=== PATIENT | male | born 1945 | race Caucasian/White ===

== ENCOUNTER 2022-07-03 08:55 | Inpatient (IN) | payer MEDICARE, OTHER ==
[~2022-07-03] VITALS: Ht 175.3 cm; Wt 84.9 kg
[2022-07-03 04:00] VITALS: BP 119/73
[2022-07-03] MEDS ORDERED: PIOG15TA8 PO (09:13)
[2022-07-03] MEDS ORDERED: ZOLP5TAB8 PO (09:13)
[2022-07-03] MEDS ORDERED: CLON0.5T4 PO (09:13)
[2022-07-03] MEDS ORDERED: ATOR10TA PO (09:13)
[2022-07-03] MEDS ORDERED: SITA1TAB6 PO (09:13)
[2022-07-03] MEDS ORDERED: IV NS 0.9% 500 ML BAG IV ONE (09:30)
--- NOTE | 2022-07-03 09:30 | NUR ---
MOVE SHEET SUBMITTED.
--- NOTE | 2022-07-03 09:31 | NUR ---
COVID TEST COLLECTED AND SENT
--- NOTE | 2022-07-03 09:33 | NUR ---
X RAY AT BEDSIDE
--- NOTE | 2022-07-03 09:40 | NUR ---
DR PIERCE AT BEDSIDE FOR EVAL
[2022-07-03 09:41] LABS: BASOPHILS % (AUTO) 0.3 % (0.0-2.0); EOSINOPHILS % (AUTO) 1.1 % (0.0-6.0); HEMATOCRIT 37 % (39-51); HEMOGLOBIN 12.2 g/dL (13.5-17.5); LYMPHOCYTES # (AUTO) 2.1 K/uL (0.8-4.8); LYMPHOCYTES % (AUTO) 15.5 % (20.0-44.0); MEAN CORPUSCULAR HGB CONC 33 g/dl (31.0-36.0); MEAN CORPUSCULAR VOLUME 86 fL (80-96); MONOCYTES # (AUTO) 1.1 K/uL (0.1-1.30); MONOCYTES % (AUTO) 7.7 % (2.0-12.0); NEUTROPHILS # (AUTO) 10.3 K/uL (1.8-8.9); NEUTROPHILS % (AUTO) 75.4 % (43.0-81.0); PLATELET COUNT (AUTO) 331 K/uL (150-450); RED BLOOD CELL COUNT(AUTO) 4.35 MIL/uL (4.5-6.0); WHITE BLOOD COUNT (AUTO) 13.6 K/uL (4.3-11.0)
[2022-07-03] MEDS ORDERED: CLOP75TA15 PO (09:51)
[2022-07-03] MEDS ORDERED: ASPI-1169 PO (09:51)
--- NOTE | 2022-07-03 09:53 | NUR ---
MISTI, FAMILY CALLED 911 DUE TO PT BEING WEAK, FELL LAST NIGHT AND THIS AM.
[2022-07-03 10:01] LABS: ALANINE AMINOTRANSFERASE 20 U/L (12-78); ALBUMIN 3.5 g/dL (3.4-5.0); ALKALINE PHOSPHATASE 62 U/L (46-116); ASPARTATE AMINOTRANSFERASE 20 U/L (15-37); BILIRUBIN,DIRECT 0.2 mg/dL (0.0-0.2); BILIRUBIN,TOTAL 0.6 mg/dL (0.2-1.0); CALCIUM, SERUM 9.2 mg/dL (8.5-10.1); CARBON DIOXIDE 29 mmol/L (21-32); CHLORIDE 93 mmol/L (98-107); GLUCOSE 152 mg/dL (74-106); POTASSIUM 3.9 mmol/L (3.5-5.1); SODIUM SERUM 132 mmol/L (136-145); TOTAL PROTEIN, SERUM 7.3 g/dL (6.4-8.2); UREA NITROGEN, BLOOD 19 mg/dL (7-18)
[2022-07-03] MEDS ORDERED: DICL100G34 TP (10:08)
[2022-07-03] MEDS ORDERED: FLUT16SP16 (10:08)
[2022-07-03] MEDS ORDERED: ALBU18HF2 IH (10:08)
[2022-07-03] MEDS ORDERED: ALFU10TA PO (10:08)
[2022-07-03] MEDS ORDERED: MONT10TA22 PO (10:08)
[2022-07-03] MEDS ORDERED: LOSA50TA39 PO (10:08)
[2022-07-03] MEDS ORDERED: AMLO-213 PO (10:08)
[2022-07-03] MEDS ORDERED: OMEP1CAP24 PO (10:08)
[2022-07-03] MEDS ORDERED: LIDO700A30 TP (10:08)
--- NOTE | 2022-07-03 10:55 | NUR ---
bed assigned 311.2, vee lawson
[2022-07-03] MEDS ORDERED: DICLOFENAC TOPICAL 100 GM GEL..GM. TP PRN (11:30)
[2022-07-03] MEDS ORDERED: HYDROCODONE/APAP 10/325MG TABLET PO PRN (11:30)
[2022-07-03] MEDS ORDERED: MAG HYDROX/AL HYDROX/SIMETH 30 ML UDC PO PRN (11:30)
[2022-07-03] MEDS ORDERED: ONDANSETRON HCL/PF 4 MG/2 ML VIAL IVP PRN (11:30)
[2022-07-03] MEDS ORDERED: HYDROCODONE/APAP 5/325MG TABLET PO PRN (11:30)
[2022-07-03] MEDS ORDERED: LIDOCAINE 5% (PATCH) 1 EA PATCH TP PRN (11:30)
[2022-07-03] MEDS ORDERED: clonazePAM 0.5 MG TABLET PO PRN (11:30)
[2022-07-03] MEDS ORDERED: ACETAMINOPHEN 325 MG TABLET PO PRN (11:30)
[2022-07-03] MEDS ORDERED: Z GUARD REMEDY 4 OZ OINT TP PRN (11:30)
[2022-07-03] MEDS ORDERED: HOME MED MISCELLANEOUS XX SCH (11:30)
[2022-07-03] MEDS ORDERED: ALBUTEROL FS 2.5 MG/0.5 ML VIAL.NEB NEB PRN (11:30)
[2022-07-03] MEDS ORDERED: ALBUTEROL SULFATE 8 GM HFA.AER.AD IH PRN (11:30)
[2022-07-03] MEDS: BLOOD SUGAR DIAGNOSTIC 1 EACH STRIP IN SCH ×3 (11:36→21:03)
[2022-07-03] MEDS ORDERED: IV NS 0.9% 1,000 ML BAG IV ONE (12:00)
[2022-07-03] MEDS ORDERED: VANCOMYCIN 1 GM in IV D5W 250 ML IV ONE (12:00)
[2022-07-03] MEDS ORDERED: CEFTRIAXONE 1GM BAG (ER ONLY) 50 ML IV ONE (12:00)
[2022-07-03] MEDS ORDERED: DEXTROSE 50%-WATER 50 ML DISP.SYRIN IV PRN (12:00)
[2022-07-03] MEDS ORDERED: IV NS 0.9% 1,000 ML IV SCH (12:00)
[2022-07-03 12:44] LABS: BILIRUBIN,URINE NEGATIVE (NEGATIVE); COLOR,URINE YELLOW (YELLOW); LEUKOCYTE ESTERASE ,URINE NEGATIVE (NEGATIVE); NITRITE, URINE NEGATIVE (NEGATIVE); PROTEIN,URINE NEGATIVE (NEGATIVE); UGLUCOSE NEGATIVE (NEGATIVE)
--- NOTE | 2022-07-03 12:50 | NUR ---
CALL FROM LAB. REPEAT LACTIC ACID 6.55. CLS IS UNABLE TO ENTER RESULT BECAUSE ORDER GOT CANCELLED
[2022-07-03 13:08] LABS: BACTERIA,URINE None seen /HPF (None Seen); MUCUS,URINE Few /LPF (None Seen); RBC,URINE 0-2 /HPF (0-2); SQUAMOUS EPITHELIAL CELL,UR Rare /HPF (None Seen); WBC,URINE 0-2 /HPF (0-3)
--- NOTE | 2022-07-03 13:20 | NUR ---
MS ADMITTING NOTES: ADMITTED A 76YO MALE PT GUAMANIAN SPEAKING ABLE TO VERBALIZED NEEDS. NO SOB OR CARDIAC DISTRESS NOTED, TRANSFERRED BY ER NURSES VIA GURNEY. IV ACCESS ON LAC G20 PATENT AND INTACT. ABDOMEN SOFT AND NOT DISTENDED. BODY ASSESSMENTS DONE, PHOTO TAKEN AND FILED TO PTS CHART. ORIENTED TO STAFFS AND ROOM MATE. SAFETY PRECAUTIONS INITIATED, BED LOCKED AND IN LOWEST POSITION, SIDE REAILS UP X 2 AND BED TABLE AND CALL LIGHT IN EASY REACH FOR HELP. WILL MONITOR PT ACCORDINGLY.
--- NOTE | 2022-07-03 17:00 | NUR ---
RN NOTES: RECEIVED A CALL FROM LABS LACTIC ACID 6.0 AND INFORMED MD,WAITING FOR RESPONSE.
[2022-07-03] MEDS: ATORVASTATIN 10 MG TABLET PO SCH (17:42)
[2022-07-03] MEDS: LOSARTAN POTASSIUM 50 MG TABLET PO SCH (17:42)
[2022-07-03] MEDS: FLUTICASONE PROPIONATE 16 GM BOTTLE NS SCH (17:48)
[2022-07-03] MEDS: INSULIN REGULAR, HUMAN 100 UNIT/ML 3 ML VIAL SQ PRN ×2 (17:48→21:08)
[2022-07-03] MEDS ORDERED: IV NS 0.9% 1,000 ML IV PRN (18:00)
--- NOTE | 2022-07-03 18:43 | NUR ---
MS RN CLOSING NOTES: PATIENT IN BED AWAKE, ANGOLAN SPEAKING. A/OX3 AND ABLE TO VERBALIZED NEEDS. NO SOB OR CARDIAC DISTRESS NOTED, AFEBRILE. WITH IV ACCESS ON LAC G20 RUNNING NS @75ML/HR. PATENT, INTACT AND INFUSING WELL. SAFETY MEAURES MAINTAINED.BED LOCKED AND IN LOWEST POSITION SIDE RAILS UP X 2 CALL LIGHT IN EASY REACH FOR HELP. WILL ENDORSE TO NOC SHIFT FOR JANNY.
[2022-07-03 20:37] VITALS: BP 123/72
[2022-07-03] MEDS ORDERED: ALFUZOSIN 10 MG PO SCH (22:00)
[2022-07-03] MEDS ORDERED: ZOLPIDEM TARTRATE 5 MG TABLET PO SCH (22:00)
[2022-07-03] MEDS ORDERED: MAGNESIUM HYDROXIDE 30 ML UDC PO PRN (22:00)
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
[2022-07-04 06:02] LABS: BASOPHILS % (AUTO) 0.3 % (0.0-2.0); EOSINOPHILS % (AUTO) 1.2 % (0.0-6.0); HEMATOCRIT 33 % (39-51); HEMOGLOBIN 11.1 g/dL (13.5-17.5); LYMPHOCYTES # (AUTO) 1.9 K/uL (0.8-4.8); LYMPHOCYTES % (AUTO) 15.8 % (20.0-44.0); MEAN CORPUSCULAR HGB CONC 33 g/dl (31.0-36.0); MEAN CORPUSCULAR VOLUME 85 fL (80-96); MONOCYTES # (AUTO) 0.9 K/uL (0.1-1.30); MONOCYTES % (AUTO) 7.2 % (2.0-12.0); NEUTROPHILS # (AUTO) 8.9 K/uL (1.8-8.9); NEUTROPHILS % (AUTO) 75.5 % (43.0-81.0); PLATELET COUNT (AUTO) 325 K/uL (150-450); RED BLOOD CELL COUNT(AUTO) 3.92 MIL/uL (4.5-6.0); WHITE BLOOD COUNT (AUTO) 11.8 K/uL (4.3-11.0)
[2022-07-04] MEDS: BLOOD SUGAR DIAGNOSTIC 1 EACH STRIP IN SCH ×3 (06:15→17:30)
[2022-07-04 06:32] LABS: CALCIUM, SERUM 8.5 mg/dL (8.5-10.1); CARBON DIOXIDE 31 mmol/L (21-32); CHLORIDE 97 mmol/L (98-107); CREATININE 0.7 mg/dL (0.6-1.3); GLUCOSE 120 mg/dL (74-106); MAGNESIUM 1.5 mg/dL (1.8-2.4); PHOSPHORUS 2.6 mg/dL (2.5-4.9); POTASSIUM 3.9 mmol/L (3.5-5.1); SODIUM SERUM 134 mmol/L (136-145); UREA NITROGEN, BLOOD 14 mg/dL (7-18)
[2022-07-04] MEDS ORDERED: PANTOPRAZOLE 40 MG TABLET.DR PO SCH (07:30)
--- NOTE | 2022-07-04 07:30 | NUR ---
RN MS NOTES PT AWAKE, ALERT AND ORIENTED, NO COMPLAINT OF PAIN OR ANY DISCOMFORT, ABLE TO AMBULATE IN THE ROOM WITH SLOW AND STEADY GAIT, CALL LIGHT WITHIN REACH, NEEDS ATTENDED.
[2022-07-04 07:53] LABS: THYROID STIMULATING HORMONE 1.796 uIU/mL (0.358-3.74)
[2022-07-04 08:00] VITALS: BP 126/79
[2022-07-04] MEDS: FLUTICASONE PROPIONATE 16 GM BOTTLE NS SCH ×2 (08:45→17:34)
[2022-07-04] MEDS: LOSARTAN POTASSIUM 50 MG TABLET PO SCH ×2 (08:46→17:00)
[2022-07-04] MEDS ORDERED: ASPIRIN 81 MG TAB.CHEW PO SCH (09:00)
[2022-07-04] MEDS ORDERED: AMLODIPINE BESYLATE 10 MG TABLET PO SCH (09:00)
[2022-07-04] MEDS ORDERED: PIOGLITAZONE HCL 15 MG TABLET PO SCH (09:00)
[2022-07-04] MEDS ORDERED: CLOPIDOGREL BISULFATE 75 MG TABLET PO SCH (09:00)
[2022-07-04] MEDS ORDERED: MONTELUKAST SODIUM (10MG) 10 MG TABLET PO SCH (09:00)
[2022-07-04] MEDS ORDERED: MAGNESIUM OXIDE 400 MG TABLET PO ONE (10:00)
--- NOTE | 2022-07-04 11:00 | NUR ---
RN MS NOTES PT SEEN AND EXAMINED BY DR. DELGADO, PLAN OF CARE DISCUSSED WITH PT THROUGH AND SEROLOGIST, FAMILY INFORMED OF PLAN OF CARE, VERBALIZED UNDERSTANDING.
[2022-07-04] MEDS ORDERED: IV NS 0.9% 1,000 ML IV ONE (15:30)
[2022-07-04] MEDS ORDERED: IV NS 0.9% 1,000 ML IV PRN (15:30)
[2022-07-04 16:00] VITALS: BP 116/67
[2022-07-04 17:00] VITALS: BP 116/67
[2022-07-04] MEDS ORDERED: METFORMIN 500 MG TABLET PO SCH (17:00)
[2022-07-04] MEDS: ATORVASTATIN 10 MG TABLET PO SCH (17:33)
--- NOTE | 2022-07-04 18:53 | NUR ---
RN NOTE- FAMILY CAME ANTHONY ASKED TO DC PT HOME. DEISY DELGADO CALLED. PT CAME OUT IN PAREKH W ANTHONY AND SHE DEMANDED TO SIGN PT AMA. IV HEPLOCK REMOVED, ID WRISTBAND REMOVED AND PT SIGNED AMA.
[2022-07-05] MEDS ORDERED: LINAGLIPTIN 5 MG TABLET PO SCH (09:00)
== END 2022-07-04 18:56 | disposition home health service (06) | DRG 149 ==
LOC: ER 09:04 → MED 11:16
PROVIDERS: ADMIT Nurse Practitioner Acute Care; ATTEND Registered Nurse
DX: H81.10 Benign paroxysmal vertigo, unspecified ear (principal); N17.0 Acute kidney failure with tubular necrosis; E87.1 Hypo-osmolality and hyponatremia; E87.2 Acidosis; Z20.822 Contact with and (suspected) exposure to COVID-19; E11.9 Type 2 diabetes mellitus without complications; E78.5 Hyperlipidemia, unspecified; I10 Essential (primary) hypertension; I25.10 Atherosclerotic heart disease of native coronary artery without angina pectoris; K74.60 Unspecified cirrhosis of liver; R62.7 Adult failure to thrive; F41.9 Anxiety disorder, unspecified; G47.00 Insomnia, unspecified; Z79.51 Long term (current) use of inhaled steroids; Z79.02 Long term (current) use of antithrombotics/antiplatelets; Z79.82 Long term (current) use of aspirin; Z79.899 Other long term (current) drug therapy; Z79.84 Long term (current) use of oral hypoglycemic drugs; N40.0 Benign prostatic hyperplasia without lower urinary tract symptoms; K21.9 Gastro-esophageal reflux disease without esophagitis; R29.6 Repeated falls; D72.829 Elevated white blood cell count, unspecified; J45.909 Unspecified asthma, uncomplicated; Z86.16 Personal history of COVID-19; D64.9 Anemia, unspecified; M62.81 Muscle weakness (generalized); R26.89 Other abnormalities of gait and mobility
CPT/HCPCS: 36415; 70450-TC; 70551-TC; 71045-TC; 80048-TC; 80076-TC; 81001; 82962-TC; 83605-TC; 83735-TC; 83880; 84100-TC; 84443-TC; 84484-TC; 85025-TC; 87040-TC; 93307-TC; 97110-TC; 97116-TC; 97530-TC; C9803; G0378; J0696; J1815; J3370; J7030; J7040; J7060

== ENCOUNTER 2022-09-26 15:25 | Inpatient (IN) | payer MEDICARE, OTHER ==
[~2022-09-26] VITALS: Ht 180.3 cm; Wt 77.1 kg
[~2022-09-26 15:25] MED LIST: ALBU18HF2 IH; ALFU10TA PO; AMLO-213 PO; ASPI-1169 PO; ATOR10TA PO; CLON0.5T4 PO; CLOP75TA15 PO; DICL100G34 TP; FLUT16SP16; LIDO700A30 TP; LOSA50TA39 PO; MONT10TA22 PO; OMEP1CAP24 PO; PIOG15TA8 PO; SITA1TAB6 PO; ZOLP5TAB8 PO
--- NOTE | 2022-09-26 15:33 | NUR ---
[id number] C/O LEFT SIDED WEAKNESS. LKW 1900. PLACED ON BED, AAOX3, BREATHING EVEN AND UNLABORED SATURATING AT 96%RA.
--- NOTE | 2022-09-26 15:50 | NUR ---
BUDGET CONSULTANT AT BEDSIDE
[2022-09-26 16:06] LABS: HEMATOCRIT 37 % (39-51); HEMOGLOBIN 12.2 g/dL (13.5-17.5); MEAN CORPUSCULAR VOLUME 81 fL (80-96); WHITE BLOOD COUNT (AUTO) 15.7 K/uL (4.3-11.0)
[2022-09-26 16:07] LABS: BASOPHILS # (AUTO) 0.1 K/uL (0.0-0.2); BASOPHILS % (AUTO) 0.7 % (0.0-2.0); EOSINOPHILS % (AUTO) 0.1 % (0.0-6.0); LYMPHOCYTES # (AUTO) 1.7 K/uL (0.8-4.8); LYMPHOCYTES % (AUTO) 10.8 % (20.0-44.0); MEAN CORPUSCULAR HGB CONC 33 g/dl (31.0-36.0); MONOCYTES # (AUTO) 0.8 K/uL (0.1-1.30); MONOCYTES % (AUTO) 5.2 % (2.0-12.0); NEUTROPHILS # (AUTO) 13.1 K/uL (1.8-8.9); NEUTROPHILS % (AUTO) 83.2 % (43.0-81.0); PLATELET COUNT (AUTO) 358 K/uL (150-450)
--- NOTE | 2022-09-26 16:13 | NUR ---
SWAB FOR COVID19 SENT TO LAB
--- NOTE | 2022-09-26 16:14 | NUR ---
PATIENT TAKEN TO CT VIA SWAPNA
[2022-09-26 16:44] LABS: ALANINE AMINOTRANSFERASE 13 U/L (12-78); ALBUMIN 3.6 g/dL (3.4-5.0); ALKALINE PHOSPHATASE 67 U/L (46-116); ASPARTATE AMINOTRANSFERASE 23 U/L (15-37); BILIRUBIN,DIRECT 0.2 mg/dL (0.0-0.2); BILIRUBIN,TOTAL 0.7 mg/dL (0.2-1.0); CARBON DIOXIDE 26 mmol/L (21-32); CHLORIDE 88 mmol/L (98-107); CREATININE 0.8 mg/dL (0.6-1.3); GLUCOSE 204 mg/dL (74-106); POTASSIUM 3.8 mmol/L (3.5-5.1); SODIUM SERUM 125 mmol/L (136-145); TOTAL PROTEIN, SERUM 7.4 g/dL (6.4-8.2); UREA NITROGEN, BLOOD 11 mg/dL (7-18)
--- NOTE | 2022-09-26 16:58 | NUR ---
DR KENNEDY ON THE PHONE W/ DR GUZMAN
[2022-09-26] MEDS ORDERED: ASPIRIN 325 MG TABLET PO ONE (17:00)
[2022-09-26] MEDS ORDERED: ASPIRIN 325 MG TABLET ONE (17:02)
--- NOTE | 2022-09-26 17:48 | NUR ---
BED ASSIGNED 116-1
--- NOTE | 2022-09-26 18:06 | NUR ---
REPORT GIVEN TO CHON CLEMONS ROOM 116-1 FOR JANNY
--- NOTE | 2022-09-26 18:06 | NUR ---
RN NOTE RECEIVED REPORT FROM DEONTE BAKER. AWAITING PATIENT AT THIS TIME.
--- NOTE | 2022-09-26 18:39 | NUR ---
RN NOTE PATIENT ARRIVED VIA BED ACCOMPANIED BY DEONTE BAKER. VS TAKEN : BP: 145/80, RR: 20. ORAL TEMP 100.2 F. 02 SAT ON ROOM AIR 100%. TELE READING ST HR 112. IV ACCESS LAC #18 SL. WILL ENDORSE CONTINUITY OF CARE TO FREE LANCE MODEL NURSE.
[2022-09-26] MEDS ORDERED: LIDOCAINE 5% (PATCH) 1 EA PATCH TP PRN (19:00)
[2022-09-26] MEDS ORDERED: ACETAMINOPHEN 325 MG TABLET PO PRN (19:00)
[2022-09-26] MEDS ORDERED: DEXTROSE 50%-WATER 50 ML DISP.SYRIN IV PRN (19:00)
[2022-09-26] MEDS ORDERED: ONDANSETRON HCL/PF 4 MG/2 ML VIAL IVP PRN (19:00)
[2022-09-26] MEDS ORDERED: clonazePAM 0.5 MG TABLET PO PRN (19:00)
[2022-09-26] MEDS ORDERED: Z GUARD REMEDY 4 OZ OINT TP PRN (19:00)
--- NOTE | 2022-09-26 19:15 | NUR ---
SUPERVISOR EDGING NOTED ADMITTED A 77 Y/O MALE PATIENT FROM ER, WITH DX OH ACUTE CVA AND WITH HX OF HTN, HLD, DM, LIVER CIRRHOSIS, ANXIETY, INSOMNIA. PATIENT IMMIDIATELY CONNECTED TO TELEBOX, SHOWING SINUS TACH ON MONITOR WITH HR OF 110. PATIENT NOTED WITH LAC # 18 PERIPHERAL LINE, FLUSHED WITH NS, NO S/S OF INFILTRATION NOTED. V/S TAKEN AND RECORDED. BODY ASSESSMENT DONE. ALL SAFETY PRECAUTION PROVIDED. BED IN LOWEST POSITION LOCKED, BED ALARM ARMED. CALL LIGHT WITH ON REACH. CONTINUE TO MONITOR.
[2022-09-26] MEDS ORDERED: ALBUTEROL FS 2.5 MG/3 ML VIAL.NEB NEB PRN (19:30)
[2022-09-26 20:00] VITALS: BP 132/75
[2022-09-26] MEDS: IV NS 0.9% 1,000 ML IV PRN (20:52)
[2022-09-26] MEDS: BLOOD SUGAR DIAGNOSTIC 1 EACH STRIP IN SCH (22:51)
[2022-09-26] MEDS: INSULIN REGULAR, HUMAN 100 UNIT/ML 3 ML VIAL SQ PRN (22:53)
[2022-09-27] VITALS: BP 134/74
[2022-09-27 04:00] VITALS: BP 143/78
[2022-09-27 06:27] LABS: ALANINE AMINOTRANSFERASE 11 U/L (12-78); ALBUMIN 3.4 g/dL (3.4-5.0); ALKALINE PHOSPHATASE 62 U/L (46-116); ASPARTATE AMINOTRANSFERASE 22 U/L (15-37); CALCIUM, SERUM 8.6 mg/dL (8.5-10.1); CARBON DIOXIDE 25 mmol/L (21-32); CHLORIDE 89 mmol/L (98-107); CREATININE 0.8 mg/dL (0.6-1.3); GLUCOSE 150 mg/dL (74-106); MAGNESIUM 1.6 mg/dL (1.8-2.4); PHOSPHORUS 3.6 mg/dL (2.5-4.9); POTASSIUM 3.8 mmol/L (3.5-5.1); SODIUM SERUM 125 mmol/L (136-145); TOTAL PROTEIN, SERUM 7.1 g/dL (6.4-8.2); UREA NITROGEN, BLOOD 12 mg/dL (7-18)
[2022-09-27 06:28] LABS: BASOPHILS # (AUTO) 0.1 K/uL (0.0-0.2); BASOPHILS % (AUTO) 0.5 % (0.0-2.0); HEMATOCRIT 37 % (39-51); HEMOGLOBIN 12.2 g/dL (13.5-17.5); LYMPHOCYTES # (AUTO) 2.5 K/uL (0.8-4.8); LYMPHOCYTES % (AUTO) 14.8 % (20.0-44.0); MEAN CORPUSCULAR HGB CONC 33 g/dl (31.0-36.0); MEAN CORPUSCULAR VOLUME 81 fL (80-96); MONOCYTES # (AUTO) 1.3 K/uL (0.1-1.30); MONOCYTES % (AUTO) 7.7 % (2.0-12.0); NEUTROPHILS # (AUTO) 13.2 K/uL (1.8-8.9); PLATELET COUNT (AUTO) 377 K/uL (150-450); RED BLOOD CELL COUNT(AUTO) 4.58 MIL/uL (4.5-6.0); WHITE BLOOD COUNT (AUTO) 17.2 K/uL (4.3-11.0)
[2022-09-27 06:30] LABS: CHOLESTEROL 160 mg/dL (<200); HDL CHOLESTEROL 75 mg/dL (40-60); LDL 79 mg/dL (0-99); TRIGLYCERIDES 68 mg/dL (30-150)
--- NOTE | 2022-09-27 07:08 | NUR ---
RN NOTES PATIENT SLEEPING BUT EASILY AROUSE, RESPIRATORY EVEN AND UNLABORED, NO SOB NOTED. REMAIN AFEBRILE. NO S/S OF DISTRESS NOTED. RUNNING WITH NS @ 75 ML/HR. ALL DUE MEDS GIVEN ALL SAFETY PRECAUTION PROVIDED. BED IN LOWEST POSITION, LOCKED, BED ALARM ARMED. CALL LIGHT WITH IN REACH. CONTINUE TO MONITOR
--- NOTE | 2022-09-27 07:30 | NUR ---
TD RN AM NOTES PT IN BED, AOX3, YI SPEAKING, ON RA O2 SAT >95%, RESPIRATION UNLABORED, ST HR 107 ON MONITOR. DENIES PAIN/DISCOMFORT. RIGHT AC G 18 IV INFILTRATED. WILL RESTART IV ON ANOTHER SITE. WITH NS AT 75 ML/HR. NO SKIN ISSUES. NEEDS ASSIST IN TURNING AND REPOSITIONING. ON DIAPERS. POC DISCUSSED, NEEDS FURTHER TEACHINGS. SOFT DIET. BED BOUND FOR NOW. SAFETY MEASURES IN PLACE, BED LOW LOCKED. CALL LIGHT WITHIN REACH. WILL CONT TO MONITOR.
[2022-09-27] MEDS: BLOOD SUGAR DIAGNOSTIC 1 EACH STRIP IN SCH ×4 (07:48→22:02)
[2022-09-27 08:00] VITALS: BP 128/82
[2022-09-27] MEDS: PANTOPRAZOLE 40 MG TABLET.DR PO SCH (08:03)
[2022-09-27] MEDS: ASPIRIN 81 MG TAB.CHEW PO SCH (08:38)
[2022-09-27] MEDS: MONTELUKAST SODIUM (10MG) 10 MG TABLET PO SCH (08:38)
[2022-09-27] MEDS: CLOPIDOGREL BISULFATE 75 MG TABLET PO SCH (08:38)
[2022-09-27] MEDS: LINAGLIPTIN 5 MG TABLET PO SCH (08:39)
[2022-09-27] MEDS: PIOGLITAZONE HCL 15 MG TABLET PO SCH (08:39)
[2022-09-27] MEDS ORDERED: AMLODIPINE BESYLATE 10 MG TABLET PO SCH (09:00)
[2022-09-27] MEDS ORDERED: LOSARTAN POTASSIUM 50 MG TABLET PO SCH (09:00)
--- NOTE | 2022-09-27 09:30 | NUR ---
RN NOTES DUE MEDS GIVEN
[2022-09-27] MEDS: FLUTICASONE PROPIONATE 16 GM BOTTLE NS SCH ×2 (09:47→16:52)
[2022-09-27] MEDS ORDERED: MAGNESIUM OXIDE 400 MG TABLET PO ONE (10:00)
[2022-09-27] MEDS: INSULIN REGULAR, HUMAN 100 UNIT/ML 3 ML VIAL SQ PRN ×4 (10:28→22:03)
[2022-09-27 12:00] VITALS: BP 116/69
[2022-09-27] MEDS ORDERED: IV NS 0.9% 250 ML IV ONE (12:00)
[2022-09-27] MEDS ORDERED: IOHEXOL-350 100 ML VIAL IV ONE (12:00)
[2022-09-27] MEDS: IV NS 0.9% 1,000 ML IV PRN (13:55)
[2022-09-27 16:00] VITALS: BP 121/72
[2022-09-27] MEDS ORDERED: ATORVASTATIN 10 MG TABLET PO SCH (18:00)
--- NOTE | 2022-09-27 18:55 | NUR ---
PATIENT IS AWAKE, ALERT, ORIENTED X 4, ANGOLAN SPEAKING ONLY, VITAL SIGNS ARE STABLE
--- NOTE | 2022-09-27 19:30 | NUR ---
RN OPENING NOTES PT IN BED, AWAKE, AO X 1-2, OMANI SPEAKING ONLY. CURRENTLY ON RA, TOLERATING WELL, O2 SAT >95%, RESPIRATION IS EVEN AND UNLABORED. SR HR IN THE 90s ON MONITOR. DENIES PAIN AND DISCOMFORT. NO S/SX OF ACUTE RESPI DISTRESS NOTED AT THIS TIME. RIGHT AC #18G IN PLACE RUNNING NS @ 75 CC/HR. ALL SAFETY MEASURES IN PLACE: BED IN LOW POSITION, LOCKED. BED ALARM ON. SR UP X 2. CALL LIGHT WITHIN REACH. WILL CONT TO MONITOR.
[2022-09-27 20:00] VITALS: BP 116/65
[2022-09-28] VITALS: BP 116/65
[2022-09-28] MEDS: IV NS 0.9% 1,000 ML IV PRN (01:25)
[2022-09-28 04:00] VITALS: BP 114/58
--- NOTE | 2022-09-28 06:16 | NUR ---
RN NOTE NO SIGNIFICANT CHANGE T/O THE NIGHT. PT REMAINED STABLE. VS WNL.ST ON TELE MONITOR. WILL ENDORSE TO AM SHIFT NURSE FOR JANNY.
[2022-09-28 06:36] LABS: CALCIUM, SERUM 8.8 mg/dL (8.5-10.1); CARBON DIOXIDE 25 mmol/L (21-32); CHLORIDE 97 mmol/L (98-107); CREATININE 0.8 mg/dL (0.6-1.3); GLUCOSE 121 mg/dL (74-106); PHOSPHORUS 3.8 mg/dL (2.5-4.9); POTASSIUM 3.4 mmol/L (3.5-5.1); SODIUM SERUM 132 mmol/L (136-145); UREA NITROGEN, BLOOD 16 mg/dL (7-18)
[2022-09-28 07:56] LABS: BASOPHILS # (AUTO) 0.1 K/uL (0.0-0.2); BASOPHILS % (AUTO) 0.6 % (0.0-2.0); EOSINOPHILS % (AUTO) 0.4 % (0.0-6.0); HEMATOCRIT 37 % (39-51); HEMOGLOBIN 12.2 g/dL (13.5-17.5); LYMPHOCYTES # (AUTO) 2.4 K/uL (0.8-4.8); LYMPHOCYTES % (AUTO) 16.6 % (20.0-44.0); MEAN CORPUSCULAR HGB CONC 33 g/dl (31.0-36.0); MEAN CORPUSCULAR VOLUME 81 fL (80-96); MONOCYTES # (AUTO) 1.3 K/uL (0.1-1.30); NEUTROPHILS # (AUTO) 10.8 K/uL (1.8-8.9); NEUTROPHILS % (AUTO) 73.4 % (43.0-81.0); PLATELET COUNT (AUTO) 390 K/uL (150-450); RED BLOOD CELL COUNT(AUTO) 4.63 MIL/uL (4.5-6.0); WHITE BLOOD COUNT (AUTO) 14.8 K/uL (4.3-11.0)
[2022-09-28 08:00] VITALS: BP 120/73
[2022-09-28] MEDS: BLOOD SUGAR DIAGNOSTIC 1 EACH STRIP IN SCH ×3 (08:19→18:06)
[2022-09-28] MEDS: CLOPIDOGREL BISULFATE 75 MG TABLET PO SCH (08:20)
[2022-09-28] MEDS: PANTOPRAZOLE 40 MG TABLET.DR PO SCH (08:20)
[2022-09-28] MEDS: MONTELUKAST SODIUM (10MG) 10 MG TABLET PO SCH (08:20)
[2022-09-28] MEDS: ASPIRIN 81 MG TAB.CHEW PO SCH (08:20)
[2022-09-28] MEDS: PIOGLITAZONE HCL 15 MG TABLET PO SCH (08:20)
[2022-09-28] MEDS: LINAGLIPTIN 5 MG TABLET PO SCH (08:28)
[2022-09-28] MEDS: FLUTICASONE PROPIONATE 16 GM BOTTLE NS SCH ×2 (08:28→17:29)
[2022-09-28] MEDS ORDERED: POTASSIUM CHLORIDE 20 MEQ TAB.PRT.SR PO SCH (10:00)
[2022-09-28 12:00] VITALS: BP 129/73
[2022-09-28] MEDS: INSULIN REGULAR, HUMAN 100 UNIT/ML 3 ML VIAL SQ PRN (12:34)
[2022-09-28 15:38] LABS: BILIRUBIN,URINE NEGATIVE (NEGATIVE); COLOR,URINE YELLOW (YELLOW); LEUKOCYTE ESTERASE ,URINE NEGATIVE (NEGATIVE); NITRITE, URINE NEGATIVE (NEGATIVE); PH,URINE 6.5 (5.0-8.0); PROTEIN,URINE NEGATIVE (NEGATIVE); UGLUCOSE NEGATIVE (NEGATIVE); UROBILINOGEN,URINE 0.2 EU/dL (0.2)
[2022-09-28 16:00] VITALS: BP 129/84
--- NOTE | 2022-09-28 18:51 | NUR ---
PT'S DAUGHTER CAME AND BOTH THE PATIENT AND THE DAUGHTER IN AGRREMENT THAT THEY WANTED TO LEAVE THE HOSPITAL AMA AND NO LONGER WANTED TO RECEIVE MEDICAL TREATMENT. THEY WERE DISCHARGED AMA INCIDENT REPORT WAS FILED
== END 2022-09-28 18:50 | disposition left against medical advice (07) | DRG 564 ==
LOC: ER 15:27 → TELE1 17:57
PROVIDERS: ADMIT Nurse Practitioner Acute Care; ATTEND Nurse Practitioner Acute Care
PROC: 05H933Z Insertion of Infusion Device into Right Brachial Vein, Percutaneous Approach (ICD-10-PCS; principal; 2022-09-27)
DX: M24.812 Other specific joint derangements of left shoulder, not elsewhere classified (principal); G93.41 Metabolic encephalopathy; E87.1 Hypo-osmolality and hyponatremia; G81.94 Hemiplegia, unspecified affecting left nondominant side; M75.42 Impingement syndrome of left shoulder; I25.10 Atherosclerotic heart disease of native coronary artery without angina pectoris; E78.5 Hyperlipidemia, unspecified; D72.829 Elevated white blood cell count, unspecified; I10 Essential (primary) hypertension; N40.0 Benign prostatic hyperplasia without lower urinary tract symptoms; K74.60 Unspecified cirrhosis of liver; E11.9 Type 2 diabetes mellitus without complications; K21.9 Gastro-esophageal reflux disease without esophagitis; F41.9 Anxiety disorder, unspecified; G47.00 Insomnia, unspecified; Z20.822 Contact with and (suspected) exposure to COVID-19
CPT/HCPCS: 36415; 70450-TC; 70496-TC; 70498-TC; 71045-TC; 80048-TC; 80053-TC; 80061-TC; 80076-TC; 82533; 82962-TC; 83735-TC; 84100-TC; 84443-TC; 84484-TC; 85025-TC; 85730-TC; 87081-TC; 92526; 92611-TC; 93307-TC; 97110-TC; 97112-TC; 97530-TC; C9803; G0378; J1815; J7030; J7050; Q9967

== ENCOUNTER 2024-09-13 10:33 | Inpatient (IN) | payer MEDICARE, OTHER ==
[2024-09-13] VITALS (15 sets, daily range): BP systolic 83–166; BP diastolic 62–154; TEMP 97.6–99.2; O2SAT 83–100
[~2024-09-13] VITALS: Ht 172.7 cm; Wt 76.2 kg
[2024-09-13] MEDS ORDERED: ACETAMINOPHEN 650 MG/SUPP.RECT RC ONE (10:46)
[2024-09-13] MEDS: IV NS 0.9% 1,000 ML BAG IV ONE (10:58)
[2024-09-13] MEDS: PIPERACILLIN /TAZOBACTAM 3.375 G in IV D5W 50 ML IV ONE (10:58)
[2024-09-13 10:59] LABS: BASOPHILS # (AUTO) 0.1 K/uL (0.0-0.2); BASOPHILS % (AUTO) 0.4 % (0.0-2.0); EOSINOPHILS % (AUTO) 0.1 % (0.0-6.0); HEMATOCRIT 42 % (39-51); HEMOGLOBIN 13.4 g/dL (13.5-17.5); LYMPHOCYTES # (AUTO) 2.7 K/uL (0.8-4.8); LYMPHOCYTES % (AUTO) 15.3 % (20.0-44.0); MEAN CORPUSCULAR HEMOGLOBIN 26 PG (26.0-33.0); MEAN CORPUSCULAR HGB CONC 32 g/dl (31.0-36.0); MEAN CORPUSCULAR VOLUME 82 fL (80-96); MONOCYTES # (AUTO) 0.8 K/uL (0.1-1.30); MONOCYTES % (AUTO) 4.6 % (2.0-12.0); NEUTROPHILS # (AUTO) 14.3 K/uL (1.8-8.9); NEUTROPHILS % (AUTO) 79.6 % (43.0-81.0); PLATELET COUNT (AUTO) 506 K/uL (150-450); RED BLOOD CELL COUNT(AUTO) 5.16 MIL/uL (4.5-6.0); RED CELL DISTRIBUTION WIDTH 16.5 % (11.5-15.0)
[2024-09-13 11:04] LABS: ABG BASE EXCESS -1.5 mmol/L (-2.0-3.0); ABG OXYGEN SATURATION 90.5 % (94.0-98.0); ABG PCO2 35.6 mmHg (35.0-48.0); ABG PH 7.418 (7.350-7.450); ABG PO2 60.5 mmHg (83.0-108.0); ABG TOTAL HEMOGLOBIN 12.9 G/dL (13.5-17.5); COHb 0.3 % (0.5-1.5); MetHb 0.3 % (0.0-1.5); SITE, ABG RIGHT RADIAL
[2024-09-13] MEDS: ACETAMINOPHEN 650 MG/SUPP.RECT RC ONE (11:04)
[2024-09-13 11:14] LABS: CALCIUM, SERUM 9.9 mg/dL (8.5-10.1); CARBON DIOXIDE 26 mmol/L (21-32); CHLORIDE 101 mmol/L (98-107); CREATININE 0.8 mg/dL (0.6-1.3); GLUCOSE 171 mg/dL (74-106); POTASSIUM 4.3 mmol/L (3.5-5.1); SODIUM SERUM 139 mmol/L (136-145); UREA NITROGEN, BLOOD 22 mg/dL (7-18)
[2024-09-13 11:20] LABS: ALANINE AMINOTRANSFERASE 13 U/L (12-78); ALKALINE PHOSPHATASE 82 U/L (46-116); ASPARTATE AMINOTRANSFERASE 36 U/L (15-37); TOTAL PROTEIN, SERUM 8.5 g/dL (6.4-8.2)
[2024-09-13 11:23] LABS: INR 1.07 (0.91-1.10); PARTIAL THROMBOPLASTIN TIME 26.3 SEC (24.3-34.3)
[2024-09-13 11:27] LABS: LACTIC ACID 2.3 mmol/L (0.4-2.0)
[2024-09-13 11:39] LABS: ALBUMIN 3.1 g/dL (3.4-5.0)
[2024-09-13 11:40] LABS: BILIRUBIN,DIRECT 0.3 mg/dL (0.0-0.2)
[2024-09-13] MEDS ORDERED: TAMS-12 PO (11:41)
[2024-09-13] MEDS ORDERED: CLON1TAB12 PO (11:41)
[2024-09-13] MEDS ORDERED: DULO40CA7 PO (11:41)
[2024-09-13] MEDS ORDERED: FAMO20TA8 PO (11:41)
[2024-09-13] MEDS ORDERED: MAG HYDROX/AL HYDROX/SIMETH 30 ML UDC PO PRN (12:00)
[2024-09-13] MEDS ORDERED: MAGNESIUM HYDROXIDE 30 ML UDC PO PRN (12:00)
[2024-09-13] MEDS ORDERED: ACETAMINOPHEN 325 MG TABLET PO PRN (12:00)
[2024-09-13 13:12] LABS: APPEARANCE,URINE CLEAR (CLEAR); BILIRUBIN,URINE 1+ (NEGATIVE); BLOOD, URINE NEGATIVE Ery/uL (NEGATIVE); COLOR,URINE YELLOW (YELLOW); KETONES,URINE 3+ mg/dL (NEGATIVE); LEUKOCYTE ESTERASE ,URINE NEGATIVE (NEGATIVE); NITRITE, URINE NEGATIVE (NEGATIVE); PROTEIN,URINE 1+ mg/dl (NEGATIVE); UGLUCOSE NEGATIVE (NEGATIVE); UROBILINOGEN,URINE 0.2 EU/dL (0.2)
[2024-09-13 14:32] LABS: ADD URINE CULTURE YES; BACTERIA,URINE 1+ /HPF (None Seen); RBC,URINE 0-2 /HPF (0-2); SQUAMOUS EPITHELIAL CELL,UR 0-2 /HPF (None Seen)
[2024-09-13] MEDS: IV NS 0.9% 1,000 ML IV PRN (14:43)
[2024-09-13] MEDS: VANCOMYCIN 1 GM in IV D5W 250ml IV ONE (15:07)
[2024-09-13] MEDS: ENOXAPARIN SODIUM 40 MG/0.4 ML DISP.SYRIN SQ SCH (15:15)
[2024-09-13] MEDS: VANCOMYCIN 750 MG in IV D5W 250 ML IV ONE (16:29)
[2024-09-13] MEDS: Z GUARD REMEDY 4 OZ OINT TP PRN (16:29)
[2024-09-13] MEDS: PIPERACILLIN /TAZOBACTAM 4.5 G in IV D5W 50 ML IV SCH (16:41)
[2024-09-13] MEDS: TAMSULOSIN 0.4 MG CAP.SR.24H PO SCH (21:24)
[2024-09-14] VITALS (97 sets, daily range): BP systolic 70–139; BP diastolic 55–111; TEMP 98–99; O2SAT 90–100
[2024-09-14] MEDS: PHENYLEPHRINE 50 MG in IV NS 0.9% 245 ML IV PRN (00:25)
[2024-09-14] MEDS: VANCOMYCIN 750 MG in IV D5W 250 ML IV SCH (01:34)
[2024-09-14] MEDS: ONDANSETRON HCL/PF 4 MG/2 ML VIAL IVP PRN (03:06)
[2024-09-14 05:02] LABS: BASOPHILS % (AUTO) 0.1 % (0.0-2.0); HEMATOCRIT 36 % (39-51); HEMOGLOBIN 11.4 g/dL (13.5-17.5); LYMPHOCYTES # (AUTO) 1.1 K/uL (0.8-4.8); LYMPHOCYTES % (AUTO) 3.1 % (20.0-44.0); MEAN CORPUSCULAR HEMOGLOBIN 25 PG (26.0-33.0); MEAN CORPUSCULAR HGB CONC 32 g/dl (31.0-36.0); MEAN CORPUSCULAR VOLUME 80 fL (80-96); MONOCYTES # (AUTO) 1.1 K/uL (0.1-1.30); MONOCYTES % (AUTO) 3.2 % (2.0-12.0); NEUTROPHILS # (AUTO) 33.4 K/uL (1.8-8.9); NEUTROPHILS % (AUTO) 93.6 % (43.0-81.0); PLATELET COUNT (AUTO) 484 K/uL (150-450); RED CELL DISTRIBUTION WIDTH 15.9 % (11.5-15.0)
[2024-09-14 05:11] LABS: WHITE BLOOD COUNT (AUTO) 35.7 K/uL (4.3-11.0)
[2024-09-14 05:30] LABS: ABG BASE EXCESS -5.3 mmol/L (-2.0-3.0); ABG PCO2 29.4 mmHg (35.0-48.0); ABG PH 7.409 (7.350-7.450); ABG PO2 150.5 mmHg (83.0-108.0); ABG TOTAL HEMOGLOBIN 12.7 G/dL (13.5-17.5); COHb 0.3 % (0.5-1.5); MetHb 0.2 % (0.0-1.5); O2Hb 98.5 % (94.0-97.0); SITE, ABG RIGHT RADIAL
[2024-09-14 05:53] LABS: CALCIUM, SERUM 8.4 mg/dL (8.5-10.1); CARBON DIOXIDE 24 mmol/L (21-32); CHLORIDE 104 mmol/L (98-107); CREATININE 1.3 mg/dL (0.6-1.3); GLUCOSE 234 mg/dL (74-106); MAGNESIUM 1.7 mg/dL (1.8-2.4); PHOSPHORUS 3.3 mg/dL (2.5-4.9); POTASSIUM 3.4 mmol/L (3.5-5.1); SODIUM SERUM 142 mmol/L (136-145); UREA NITROGEN, BLOOD 27 mg/dL (7-18)
[2024-09-14 06:24] LABS: BAND % (MANUAL) 10 % (0.0-5.0); LYMPHOCYTES % (MANUAL) 3 % (16-48); MONOCYTES % (MANUAL) 3 % (0-11.0); NEUTROPHILS % (MANUAL) 84 (42-76)
[2024-09-14 06:25] LABS: PLATELET ESTIMATE INCREASED
[2024-09-14 06:26] LABS: ANISOCYTOSIS 1+
[2024-09-14] MEDS: POTASSIUM CHLORIDE 20 MEQ POWDER PACKET NG SCH (09:00)
[2024-09-14] MEDS: DULOXETINE HCL 20 MG CAPSULE.DR PO SCH (09:00)
[2024-09-14] MEDS: Magnesium 1GM/D5W 100ML PREMIX 100 ML IV SCH (09:52)
[2024-09-14] MEDS: PIPERACILLIN /TAZOBACTAM 4.5 G in IV D5W 100 ML IV SCH (10:47)
[2024-09-14] MEDS: VANCOMYCIN 500 MG in IV D5W 100ml IV SCH (13:54)
[2024-09-14] MEDS: POTASSIUM CL. PREMIX PERIPHER. 50 ML IV SCH (16:29)
[2024-09-14 21:29] LABS: CREATININE, URINE 160.6 MG/DL (30.0-125.0); URINE TOTAL PROTEIN 255.2 mg/dL (0-11.9)
[2024-09-15] VITALS (70 sets, daily range): BP systolic 67–169; BP diastolic 54–137; TEMP 97.6–99.2; O2SAT 66–100
[2024-09-15 05:28] LABS: CALCIUM, SERUM 7.9 mg/dL (8.5-10.1); CARBON DIOXIDE 25 mmol/L (21-32); CHLORIDE 110 mmol/L (98-107); CREATININE 0.6 mg/dL (0.6-1.3); GLUCOSE 132 mg/dL (74-106); POTASSIUM 3.2 mmol/L (3.5-5.1); SODIUM SERUM 145 mmol/L (136-145); UREA NITROGEN, BLOOD 22 mg/dL (7-18)
[2024-09-15 07:49] LABS: BASOPHILS # (AUTO) 0.1 K/uL (0.0-0.2); BASOPHILS % (AUTO) 0.3 % (0.0-2.0); EOSINOPHILS # (AUTO) 0.1 K/uL (0.0-0.7); EOSINOPHILS % (AUTO) 0.3 % (0.0-6.0); HEMATOCRIT 30 % (39-51); HEMOGLOBIN 9.7 g/dL (13.5-17.5); LYMPHOCYTES # (AUTO) 1.2 K/uL (0.8-4.8); LYMPHOCYTES % (AUTO) 5.6 % (20.0-44.0); MEAN CORPUSCULAR HEMOGLOBIN 26 PG (26.0-33.0); MEAN CORPUSCULAR HGB CONC 33 g/dl (31.0-36.0); MEAN CORPUSCULAR VOLUME 80 fL (80-96); MONOCYTES # (AUTO) 1.1 K/uL (0.1-1.30); MONOCYTES % (AUTO) 5.1 % (2.0-12.0); NEUTROPHILS # (AUTO) 18.9 K/uL (1.8-8.9); NEUTROPHILS % (AUTO) 88.7 % (43.0-81.0); PLATELET COUNT (AUTO) 352 K/uL (150-450); RED BLOOD CELL COUNT(AUTO) 3.72 MIL/uL (4.5-6.0); RED CELL DISTRIBUTION WIDTH 16.5 % (11.5-15.0); WHITE BLOOD COUNT (AUTO) 21.2 K/uL (4.3-11.0)
[2024-09-15 10:30] LABS: ABG BASE EXCESS -2.9 mmol/L (-2.0-3.0); ABG OXYGEN SATURATION 97.5 % (94.0-98.0); ABG PCO2 28.9 mmHg (35.0-48.0); ABG PH 7.459 (7.350-7.450); ABG TOTAL HEMOGLOBIN 10.9 G/dL (13.5-17.5); COHb 0.3 % (0.5-1.5); MetHb 0.1 % (0.0-1.5); O2Hb 97.1 % (94.0-97.0); SITE, ABG RIGHT RADIAL
[2024-09-15] MEDS: POTASSIUM CL. PREMIX PERIPHER. 50 ML IV SCH (10:36)
[2024-09-15] MEDS ORDERED: GLUCERNA 1.2 1,000 ML BOTTLE NG PRN (14:00)
[2024-09-15 18:57] LABS: ABG BASE EXCESS -3.3 mmol/L (-2.0-3.0); ABG OXYGEN SATURATION 90.8 % (94.0-98.0); ABG PCO2 29.2 mmHg (35.0-48.0); ABG PH 7.447 (7.350-7.450); ABG PO2 58.5 mmHg (83.0-108.0); ABG TOTAL HEMOGLOBIN 11.3 G/dL (13.5-17.5); COHb 0.3 % (0.5-1.5); MetHb 0.2 % (0.0-1.5); O2Hb 90.3 % (94.0-97.0); SITE, ABG RIGHT RADIAL
[2024-09-16] VITALS (28 sets, daily range): BP systolic 103–138; BP diastolic 63–92; TEMP 97.6–99.7; O2SAT 93–100
[2024-09-16 05:21] LABS: BASOPHILS % (AUTO) 0.1 % (0.0-2.0); EOSINOPHILS % (AUTO) 0.1 % (0.0-6.0); HEMATOCRIT 28 % (39-51); HEMOGLOBIN 9.4 g/dL (13.5-17.5); LYMPHOCYTES % (AUTO) 4.9 % (20.0-44.0); MEAN CORPUSCULAR HEMOGLOBIN 26 PG (26.0-33.0); MEAN CORPUSCULAR HGB CONC 33 g/dl (31.0-36.0); MEAN CORPUSCULAR VOLUME 80 fL (80-96); MONOCYTES % (AUTO) 4.6 % (2.0-12.0); NEUTROPHILS # (AUTO) 18.6 K/uL (1.8-8.9); NEUTROPHILS % (AUTO) 90.3 % (43.0-81.0); PLATELET COUNT (AUTO) 330 K/uL (150-450); RED BLOOD CELL COUNT(AUTO) 3.56 MIL/uL (4.5-6.0); RED CELL DISTRIBUTION WIDTH 16.1 % (11.5-15.0); WHITE BLOOD COUNT (AUTO) 20.6 K/uL (4.3-11.0)
[2024-09-16 05:27] LABS: CALCIUM, SERUM 8.1 mg/dL (8.5-10.1); CHLORIDE 110 mmol/L (98-107); CREATININE 0.5 mg/dL (0.6-1.3); GLUCOSE 143 mg/dL (74-106); MAGNESIUM 1.7 mg/dL (1.8-2.4); PHOSPHORUS 1.7 mg/dL (2.5-4.9); POTASSIUM 3.1 mmol/L (3.5-5.1); SODIUM SERUM 146 mmol/L (136-145); UREA NITROGEN, BLOOD 14 mg/dL (7-18)
[2024-09-16 05:46] LABS: CARBON DIOXIDE 24 mmol/L (21-32)
[2024-09-16] MEDS: Magnesium 1GM/D5W 100ML PREMIX 100 ML IV SCH (09:50)
[2024-09-16] MEDS: POTASSIUM CL. PREMIX PERIPHER. 50 ML IV SCH (09:51)
[2024-09-16 10:51] LABS: BAND % (MANUAL) 1 % (0.0-5.0); LYMPHOCYTES % (MANUAL) 2 % (16-48); MONOCYTES % (MANUAL) 2 % (0-11.0); NEUTROPHILS % (MANUAL) 95 (42-76); PLATELET ESTIMATE ADEQUATE
[2024-09-16 10:52] LABS: ANISOCYTOSIS 1+
[2024-09-16] MEDS: POTASSIUM PHOSPHATE MM 5 MMOL in IV NS 0.9% 100 ML IV SCH (13:05)
[2024-09-16] MEDS: VANCOMYCIN 750 MG in IV D5W 250 ML IV SCH (14:16)
[2024-09-16] MEDS: IV 1/2NS 1000 ML 1,000 ML IV PRN (18:25)
[2024-09-17 02:00] VITALS: BP 128/71; TEMP 98.8; O2SAT 98
[2024-09-17 06:00] VITALS: BP 123/74; TEMP 98.8; O2SAT 98
[2024-09-17 08:11] LABS: BASOPHILS % (AUTO) 0.2 % (0.0-2.0); EOSINOPHILS # (AUTO) 0.1 K/uL (0.0-0.7); EOSINOPHILS % (AUTO) 0.3 % (0.0-6.0); HEMATOCRIT 33 % (39-51); HEMOGLOBIN 10.5 g/dL (13.5-17.5); LYMPHOCYTES # (AUTO) 1.5 K/uL (0.8-4.8); LYMPHOCYTES % (AUTO) 8.6 % (20.0-44.0); MEAN CORPUSCULAR HEMOGLOBIN 26 PG (26.0-33.0); MEAN CORPUSCULAR HGB CONC 32 g/dl (31.0-36.0); MEAN CORPUSCULAR VOLUME 80 fL (80-96); MONOCYTES # (AUTO) 1.1 K/uL (0.1-1.30); NEUTROPHILS # (AUTO) 14.8 K/uL (1.8-8.9); NEUTROPHILS % (AUTO) 84.9 % (43.0-81.0); PLATELET COUNT (AUTO) 301 K/uL (150-450); RED BLOOD CELL COUNT(AUTO) 4.12 MIL/uL (4.5-6.0); RED CELL DISTRIBUTION WIDTH 16.1 % (11.5-15.0); WHITE BLOOD COUNT (AUTO) 17.5 K/uL (4.3-11.0)
[2024-09-17 08:23] LABS: CALCIUM, SERUM 7.9 mg/dL (8.5-10.1); CARBON DIOXIDE 26 mmol/L (21-32); CHLORIDE 104 mmol/L (98-107); CREATININE 0.6 mg/dL (0.6-1.3); GLUCOSE 149 mg/dL (74-106); POTASSIUM 3.1 mmol/L (3.5-5.1); SODIUM SERUM 138 mmol/L (136-145); UREA NITROGEN, BLOOD 9 mg/dL (7-18)
[2024-09-17] MEDS: POTASSIUM CHLORIDE 20 MEQ POWDER PACKET NG SCH (09:00)
[2024-09-17 09:07] LABS: *SPE A/G RATIO 0.7 (0.7-1.7); *SPE ALBUMIN 2.5 g/dL (2.9-4.4); *SPE ALPHA-1-GLOBULIN 0.5 g/dL (0.0-0.4); *SPE ALPHA-2-GLOBULIN 1.1 g/dL (0.4-1.0); *SPE BETA GLOBULIN 1.1 g/dL (0.7-1.3); *SPE GLOBULIN, TOTAL 3.7 g/dL (2.2-3.9); *SPE M-SPIKE Not Observed g/dL (Not Observed); *SPE PROTEIN TOTAL 6.2 g/dL (6.0-8.5)
[2024-09-17 10:00] VITALS: BP 119/79; TEMP 97.7; O2SAT 95
[2024-09-17 10:29] LABS: ABG BASE EXCESS 1.8 mmol/L (-2.0-3.0); ABG OXYGEN SATURATION 94.5 % (94.0-98.0); ABG PCO2 31.3 mmHg (35.0-48.0); ABG PH 7.509 (7.350-7.450); ABG PO2 71.5 mmHg (83.0-108.0); ABG TOTAL HEMOGLOBIN 10.7 G/dL (13.5-17.5); COHb 0.3 % (0.5-1.5); MetHb 0.2 % (0.0-1.5); SITE, ABG RIGHT RADIAL
[2024-09-17] MEDS: POTASSIUM CL. PREMIX PERIPHER. 50 ML IV SCH (12:31)
[2024-09-17 14:00] VITALS: BP 119/73; TEMP 97.5; O2SAT 94
[2024-09-17 18:00] VITALS: BP 128/77; TEMP 98.2; O2SAT 94
[2024-09-17] MEDS ORDERED: MEROPENEM 500 MG in IV NS 0.9% 50 ML IV SCH ×2 (21:00→21:30)
[2024-09-17] MEDS: LEVALBUTEROL HCL NEB 1.25 MG/0.5 ML VIAL.NEB NEB SCH (23:11)
[2024-09-18] MEDS ORDERED: IPRATROPIUM NEB FS 0.5 MG/2.5 ML AMPUL.NEB NEB SCH (01:30)
== END 2024-09-17 23:00 | DRG 871 ==
LOC: ER 10:36 → ICU 13:06 → TELE1 09-16 14:56 → TELE-TD 09-16 19:46
PROVIDERS: ADMIT Internal Medicine; ATTEND Nurse Practitioner Acute Care
PROC: 5A09457 Assistance with Respiratory Ventilation, 24-96 Consecutive Hours, Continuous Positive Airway Pressure (ICD-10-PCS; principal; 2024-09-13)
PROC: 02HV33Z Insertion of Infusion Device into Superior Vena Cava, Percutaneous Approach (ICD-10-PCS; 2024-09-13)
PROC: B548ZZA Ultrasonography of Superior Vena Cava, Guidance (ICD-10-PCS; 2024-09-13)
DX: A41.9 Sepsis, unspecified organism (principal); G93.41 Metabolic encephalopathy; J96.01 Acute respiratory failure with hypoxia; J15.9 Unspecified bacterial pneumonia; J69.0 Pneumonitis due to inhalation of food and vomit; R65.21 Severe sepsis with septic shock; J44.0 Chronic obstructive pulmonary disease with (acute) lower respiratory infection; E44.0 Moderate protein-calorie malnutrition; E87.0 Hyperosmolality and hypernatremia; E87.20 Acidosis, unspecified; N17.9 Acute kidney failure, unspecified; N39.0 Urinary tract infection, site not specified; F03.94 Unspecified dementia, unspecified severity, with anxiety; N40.0 Benign prostatic hyperplasia without lower urinary tract symptoms; K74.60 Unspecified cirrhosis of liver; D64.9 Anemia, unspecified; E11.9 Type 2 diabetes mellitus without complications; E66.9 Obesity, unspecified; E78.5 Hyperlipidemia, unspecified; E87.6 Hypokalemia; E88.09 Other disorders of plasma-protein metabolism, not elsewhere classified; I10 Essential (primary) hypertension; I25.10 Atherosclerotic heart disease of native coronary artery without angina pectoris; Z86.73 Personal history of transient ischemic attack (TIA), and cerebral infarction without residual deficits; Z66 Do not resuscitate; M89.8X9 Other specified disorders of bone, unspecified site; F41.9 Anxiety disorder, unspecified; G47.00 Insomnia, unspecified; Z20.822 Contact with and (suspected) exposure to COVID-19; Z68.25 Body mass index [BMI] 25.0-25.9, adult; B96.20 Unspecified Escherichia coli [E. coli] as the cause of diseases classified elsewhere; L89.156 Pressure-induced deep tissue damage of sacral region; S01.00XA Unspecified open wound of scalp, initial encounter; X58.XXXA Exposure to other specified factors, initial encounter; Y93.9 Activity, unspecified; Y92.009 Unspecified place in unspecified non-institutional (private) residence as the place of occurrence of the external cause
CPT/HCPCS: 36415; 36600; 71045-TC; 74018; 76705-TC; 80048-TC; 80076-TC; 80202-TC; 81001; 82140-TC; 82570-TC; 82803-TC; 82962-TC; 83605-TC; 83735-TC; 84100-TC; 84155; 84165; 84300-TC; 84443-TC; 84484-TC; 85025-TC; 85730-TC; 87040-TC; 87081-TC; 87086-TC; 93307-TC; 93970-TC; 94799-TC; A4223; G0378; J1650; J2185; J2405; J2543; J3370; J3371; J3475; J3480; J3490; J7030; J7050; J7060